=== PATIENT | female | born 1965 | race African-American/Black ===

== ENCOUNTER 2019-09-07 15:35 | Inpatient (IN) ==
[2019-09-07 18:57] LABS: Eosinophils # 0.1 10*3/uL (0.0-0.87); Eosinophils % 1.4 % (0.00-10.9); Hemoglobin 8.4 GM/DL (12.0-16.0); Immature Granulocytes % 0.5 %; Immature Granulocytes Absolute 0.02 #; Lymphocytes # 1.5 10*3/uL (1.4-4.0); Mean Corpuscular HGB Conc 32.3 GM/DL (32-36); Mean Corpuscular Volume 92.2 FL (87-102); Mean Platelet Volume 9.4 FL (9.6-12.0); Monocytes % 16.6 % (1.7-12.7); Neutrophils % 43.5 % (38.7-73.9); Platelet Count 280 T/CUMM (130-400); Red Blood Count 2.82 MC/CUMM (3.8-5.5); Red Cell Distribution Width 18.6 % (9.3-17.3); White Blood Count 4.2 T/CUMM (4-12)
[2019-09-07 19:17] LABS: Alanine Aminotransferase 27 U/L (13-56); Albumin 3.4 G/DL (3.4-5.0); Alkaline Phosphatase 77 U/L (45-117); Aspartate Amino Transferase 72 U/L (0-37); Bilirubin,Total < 0.39 MG/DL (0.2-1.0); Blood Urea Nitrogen 17 MG/DL (7-18); Calcium 8.4 MG/DL (8.5-10.1); Estimated Glom Filtration Rate 116 ML/MIN; Glucose 65 MG/DL (74-106); Total Protein 7.6 G/DL (6.4-8.3)
[2019-09-07 19:48] LABS: Lymphocytes 42 % (20-55); Platelet Estimate Adequate; Segmented Neutrophils 40 % (50-85); Total Cells Counted 100
[2019-09-07 19:49] LABS: Anisocytosis Slight; Atypical Lymphocytes Few; Macrocytosis Slight
[2019-09-07] MEDS: GABAPENTIN 300 MG CAPSULE PO SCH (20:41)
[2019-09-07] MEDS: ZALEPLON 5 MG CAPSULE PO SCH (20:41)
[2019-09-07] MEDS: oxyCODONE/ACETAMINOPHEN 5-325 MG TABLET PO PRN (20:41)
[2019-09-07] MEDS: SODIUM CHLORIDE 0.9% 1,000 ML IV SCH (21:23)
[2019-09-08] MEDS: oxyCODONE/ACETAMINOPHEN 5-325 MG TABLET PO PRN ×3 (06:08→20:39)
[2019-09-08 06:37] LABS: Ferritin 17.7 ng/ml (8-252)
[2019-09-08] MEDS: GABAPENTIN 300 MG CAPSULE PO SCH ×3 (08:15→20:12)
[2019-09-08] MEDS: SODIUM CHLORIDE 0.9% 1,000 ML IV SCH ×2 (09:18→20:15)
[2019-09-08] MEDS ORDERED: ACETAMINOPHEN 325 MG TABLET PO PRN (10:37)
[2019-09-08] MEDS ORDERED: diphenhydrAMINE 50 MG/1 ML VIAL IV ONE (10:37)
[2019-09-08 14:52] LABS: Apearance,Urine CLEAR (Clear); Bilirubin,Urine Negative (Negative); Blood, Urine Small mg/dL (Negative); Glucose,Urine (UA) Negative (Negative); Ketones,Urine Negative (Negative); Mucus,Urine Occasional /LPF (Occasional); Nitrite,Urine Negative (Negative); Protein,Urine Negative; RBC,Urine 1 /HPF (0-4); Squamous Epithelial Cell,Urine Occasional /HPF (0-10); Urine Color Straw (Yellow); Urine Specific Gravity 1.006 (1.001-1.035); Urine Urobilinogen < 2.0 EU/DL (0.2-1.0); WBC,Urine 2 /HPF (0-6)
[2019-09-08] MEDS: ZALEPLON 5 MG CAPSULE PO SCH (20:12)
[2019-09-08] MEDS ORDERED: ENOXAPARIN 40 MG/0.4 ML SYRINGE SUBCUT SCH (21:00)
[2019-09-09] MEDS: SODIUM CHLORIDE 0.9% 1,000 ML IV SCH (05:09)
[2019-09-09 06:31] LABS: Basophils % 0.5 % (0.0-0.8); Eosinophils # 0.1 10*3/uL (0.0-0.87); Eosinophils % 2.2 % (0.00-10.9); Hematocrit 27.9 VOL% (35.7-47.0); Hemoglobin 8.9 GM/DL (12.0-16.0); Immature Granulocytes % 0.2 %; Immature Granulocytes Absolute 0.01 #; Lymphocytes # 1.5 10*3/uL (1.4-4.0); Lymphocytes % 37.9 % (21.3-54.2); Mean Corpuscular HGB Conc 31.9 GM/DL (32-36); Mean Corpuscular Volume 95.2 FL (87-102); Mean Platelet Volume 9.9 FL (9.6-12.0); Monocytes % 14.4 % (1.7-12.7); Neutrophils % 44.8 % (38.7-73.9); Platelet Count 258 T/CUMM (130-400); Red Blood Count 2.93 MC/CUMM (3.8-5.5); Red Cell Distribution Width 18.3 % (9.3-17.3)
[2019-09-09 07:06] LABS: Calcium 8.6 MG/DL (8.5-10.1); Osmolality,Calculated 264.4 MOS/KG (273-304)
[2019-09-09] MEDS: oxyCODONE/ACETAMINOPHEN 5-325 MG TABLET PO PRN (10:06)
[2019-09-09] MEDS: GABAPENTIN 300 MG CAPSULE PO SCH (10:06)
[2019-09-09 11:24] VITALS: BP 116/76
== END 2019-09-09 15:20 | disposition home or self-care (01) | DRG 204 ==
LOC: N.ICU → SUATTDRO 17:50 → OBSVTOIN 17:50 → N.2E 09-08 13:21
PROVIDERS: ADMIT Internal Medicine; ATTEND Internal Medicine Geriatric Medicine

== ENCOUNTER 2020-12-13 03:33 | Observation (INO) ==
[2020-12-13] MEDS ORDERED: ONDANSETRON 4 MG/2 ML VIAL IV PRN (06:17)
[2020-12-13] MEDS ORDERED: MORPHINE 2 MG/1 ML SYRINGE IV PRN (06:17)
[2020-12-13] MEDS ORDERED: POTASSIUM CHLORIDE 20 MEQ TABLET PO PRN (06:17)
[2020-12-13] MEDS ORDERED: GLUCAGON 1 MG VIAL IM PRN (06:17)
[2020-12-13] MEDS ORDERED: DEXTROSE 50% 25 GM/50 ML VIAL IV PRN (06:17)
[2020-12-13] MEDS: KETOROLAC 30 MG/1 ML VIAL IV PRN ×3 (07:26→21:06)
[2020-12-13 07:51] LABS: Basophils % 0.4 % (0.0-0.8); Eosinophils % 0.6 % (0.00-10.9); Hematocrit 27.1 VOL% (35.7-47.0); Immature Granulocytes % 0.4 %; Immature Granulocytes Absolute 0.02 #; Lymphocytes % 40.5 % (21.3-54.2); Mean Corpuscular HGB Conc 33.2 GM/DL (32-36); Mean Platelet Volume 8.3 FL (9.6-12.0); Monocytes % 11.9 % (1.7-12.7); Neutrophils % 46.2 % (38.7-73.9); Platelet Count 302 T/CUMM (130-400); Red Blood Count 3.15 MC/CUMM (3.8-5.5); Red Cell Distribution Width 16.6 % (9.3-17.3); White Blood Count 4.9 T/CUMM (4-12)
[2020-12-13 08:03] LABS: INR 1.2; PT Patient Result 12.7 SECS (10.5-12.0); Partial Thromboplastin Time 32.8 SECS (23.9-33.8)
[2020-12-13 08:22] LABS: Alanine Aminotransferase 27 U/L (13-56); Albumin 3.1 G/DL (3.4-5.0); Alkaline Phosphatase 60 U/L (45-117); Aspartate Amino Transferase 35 U/L (0-37); Bilirubin,Total < 0.39 MG/DL (0.20-1.00); Blood Urea Nitrogen 31 MG/DL (7-18); Calcium 8.2 MG/DL (8.5-10.1); Carbon Dioxide 22 MMOL/L (21-32); Estimated Glom Filtration Rate 125 ML/MIN; Glucose 81 MG/DL (74-106); HDL Cholesterol 83 MG/DL (40-60); Potassium 2.8 MMOL/L (3.5-5.1); Risk Ratio 1.93; Sodium 143 MMOL/L (136-145); Thyroid Stimulating Hormone 0.495 uIU/ml (0.358-3.74); Triglycerides 456 MG/DL (2-150); VLDL Cholesterol 91.2 MG/DL
[2020-12-13 08:36] LABS: Anisocytosis 2+; Eosinophils 1 % (0-10); Hypochromasia 1+; Lymphocytes 44 % (20-55); Platelet Estimate Normal; Segmented Neutrophils 46 % (50-85); Total Cells Counted 100
[2020-12-13] MEDS: LACTATED RINGERS 1,000 ML IV SCH ×2 (08:41→18:52)
[2020-12-13] MEDS: PANTOPRAZOLE 40 MG TABLET PO SCH (08:41)
[2020-12-13] MEDS: ENOXAPARIN 40 MG/0.4 ML SYRINGE SUBCUT SCH (09:40)
[2020-12-13] MEDS ORDERED: diphenhydrAMINE CAP 25 MG CAPSULE PO PRN (13:00)
[2020-12-14] MEDS: LACTATED RINGERS 1,000 ML IV SCH (02:30)
[2020-12-14 05:19] LABS: Basophils % 0.2 % (0.0-0.8); Eosinophils % 0.8 % (0.00-10.9); Hematocrit 27.1 VOL% (35.7-47.0); Hemoglobin 8.8 GM/DL (12.0-16.0); Immature Granulocytes % 0.2 %; Immature Granulocytes Absolute 0.01 #; Lymphocytes # 1.3 10*3/uL (1.4-4.0); Lymphocytes % 27.2 % (21.3-54.2); Mean Corpuscular HGB Conc 32.5 GM/DL (32-36); Mean Corpuscular Volume 88.3 FL (87-102); Mean Platelet Volume 8.6 FL (9.6-12.0); Monocytes % 12.6 % (1.7-12.7); Platelet Count 268 T/CUMM (130-400); Red Blood Count 3.07 MC/CUMM (3.8-5.5); Red Cell Distribution Width 16.4 % (9.3-17.3); White Blood Count 4.9 T/CUMM (4-12)
[2020-12-14 05:43] LABS: Calcium 8.5 MG/DL (8.5-10.1); Osmolality,Calculated 277.7 MOS/KG (273-304); Potassium 2.8 MMOL/L (3.5-5.1)
[2020-12-14 06:42] LABS: Anisocytosis 2+; Band Neutrophils 1 % (0-10); Eosinophils 3 % (0-10); Lymphocytes 29 % (20-55); Macrocytosis 1+; Platelet Estimate Normal; Segmented Neutrophils 56 % (50-85); Total Cells Counted 100
[2020-12-14 06:43] LABS: Target Cells Few
[2020-12-14] MEDS ORDERED: REGADENOSON 0.4 MG/5 ML SYRINGE IV ONE (08:10)
[2020-12-14] MEDS ORDERED: POTASSIUM CHLORIDE 20 MEQ TABLET PO ONE (09:52)
[2020-12-14] MEDS: PANTOPRAZOLE 40 MG TABLET PO SCH (09:53)
[2020-12-14] MEDS: ENOXAPARIN 40 MG/0.4 ML SYRINGE SUBCUT SCH (09:53)
[2020-12-14] MEDS: ASPIRIN EC 325 MG TABLET PO SCH (09:53)
[2020-12-14] MEDS: ALPRAZolam 0.5 MG TABLET PO SCH ×2 (10:37→21:19)
[2020-12-14] MEDS: CHLORTHALIDONE 25 MG TABLET PO SCH (10:37)
[2020-12-14] MEDS: POTASSIUM CHLORIDE 20 MEQ TABLET PO SCH ×2 (10:37→12:50)
[2020-12-14] MEDS: oxyCODONE/ACETAMINOPHEN 5-325 MG TABLET PO PRN ×3 (10:57→21:49)
[2020-12-14] MEDS: GABAPENTIN 300 MG CAPSULE PO SCH ×2 (14:47→21:19)
[2020-12-15 04:56] LABS: Basophils % 0.2 % (0.0-0.8); Eosinophils # 0.1 10*3/uL (0.0-0.87); Eosinophils % 1.9 % (0.00-10.9); Immature Granulocytes % 0.2 %; Immature Granulocytes Absolute 0.01 #; Lymphocytes # 1.3 10*3/uL (1.4-4.0); Lymphocytes % 30.8 % (21.3-54.2); Mean Corpuscular HGB Conc 32.1 GM/DL (32-36); Mean Corpuscular Volume 89.7 FL (87-102); Mean Platelet Volume 9.6 FL (9.6-12.0); Monocytes % 10.4 % (1.7-12.7); Neutrophils % 56.5 % (38.7-73.9); Platelet Count 302 T/CUMM (130-400); Red Blood Count 3.12 MC/CUMM (3.8-5.5); Red Cell Distribution Width 16.3 % (9.3-17.3); White Blood Count 4.3 T/CUMM (4-12)
[2020-12-15 05:14] LABS: Calcium 8.5 MG/DL (8.5-10.1); Osmolality,Calculated 272.1 MOS/KG (273-304); Potassium 3.5 MMOL/L (3.5-5.1)
[2020-12-15 05:25] LABS: Hypochromasia 1+
[2020-12-15 05:26] LABS: Microcytosis 1+; Ovalocytes Slight; Platelet Estimate Normal
[2020-12-15] MEDS: oxyCODONE/ACETAMINOPHEN 5-325 MG TABLET PO PRN ×2 (07:43→12:15)
[2020-12-15] MEDS: ASPIRIN EC 325 MG TABLET PO SCH (09:23)
[2020-12-15] MEDS: ALPRAZolam 0.5 MG TABLET PO SCH (09:23)
[2020-12-15] MEDS: GABAPENTIN 300 MG CAPSULE PO SCH ×2 (09:23→14:35)
[2020-12-15] MEDS: ENOXAPARIN 40 MG/0.4 ML SYRINGE SUBCUT SCH (09:24)
[2020-12-15] MEDS: CHLORTHALIDONE 25 MG TABLET PO SCH (09:24)
[2020-12-15] MEDS: PANTOPRAZOLE 40 MG TABLET PO SCH (09:24)
[2020-12-15 12:16] VITALS: BP 118/58
== END 2020-12-15 15:36 | disposition home or self-care (01) ==
LOC: N.TELEN → SUATTDRO 05:01
PROVIDERS: ADMIT Internal Medicine; ATTEND Internal Medicine Geriatric Medicine